=== PATIENT | female | born 1990 | race Caucasian/White ===

== ENCOUNTER 2024-01-16 11:46 | Emergency (ER) | payer MEDICAID, SELFPAY ==
[2024-01-16 11:50] VITALS: BP 137/87; PULSE 94; RESP 14; TEMP 37; O2SAT 98
--- NOTE | 2024-01-16 12:04 | ED.GENADUL_ITS ---
Discharge Plan Disposition Patient Disposition: Home Discharge Details Clinical Impression: Cellulitis of buttock, left Primary Care Provider: Unknown,Unknown ED Provider: Brian Singh Home Meds and New Rx's Prescriptions: New clindamycin HCl 300 mg capsule 300 mg PO Q6H 5 Days Qty: 20 0RF Discharge Instructions Instructions: Cellulitis (Skin Infection), Adult ED Additional Instructions: You are seen in the emergency department for your skin infection. You are receiving antibiotics that you should take as directed. The antibiotics have been called into your pharmacy. As you discussed, if you develop fevers chills or any increasing pain please return to the emergency department. Please also try to soak your skin at least once a day in the bath with warm water. Please avoid putting any creams or ointments on your skin infection but keep it clean and dry. If you develop worsening pain or increased redness please return as you may go on to develop an abscess. You do not have any signs of an abscess at the moment. For your pain please take medications as follows: 1. Take acetaminophen (Tylenol), 1,000 mg (two 500 mg tabs) every 6 hours [2. Take ibuprofen (Advil), 400 mg every 6 hours.] Discharge Data Discharge Date/Time-TO BE ENTERED AT DEPARTURE: 01/16/24 12:37 HPI General Date/Time Provider Initiated Documentation: 01/16/24 12:04 . HPI Narrative: MDM This is an overall very well-appearing normothermic and not tachycardic 33-year-old female with left buttocks cellulitis but no fluctuance nor signs of abscess to suggest benefit from incision and drainage. No pain on proportion to suggest necrotizing soft tissue infection. No vesicles to suggest zoster. No bullae to suggest Ashraf-Brody's nor TEN. Not a diabetic to suggest increased risk for opportunistic infection. No signs of erythema migrans to suggest Lyme disease. No decreased range of motion to suggest septic joint. No lacerations. Patient and I discussed return indications including any spreading erythema worsening pain fevers or inability tolerate p.o. At the lateral aspect of the patient's cellulitic area there did appear to be some pinpoint areas of erythema concerning for the possibility of dermatitis. I counseled the patient on avoiding topical antiseptic lotions and steroid creams as I did not want her to develop a secondary hypersensitivity dermatitis. Patient understood her return indications and patient was discharged with empiric trial of expectant outpatient management. 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 Patient was on antibiotics 2 weeks ago for urinary tract infection. She has no persistent symptoms of dysuria nor frequency. She reports that the area has been draining some clear and yellowish discharge. She also noticed a new spot on the left side of her nose. She says that the area is painful. She has had no fevers. She is a daily smoker and occasionally drinks ethanol. She denies illicit drug use. He has had no fevers chills nausea vomiting chest pain or shortness of breath. Exam General: Well-appearing in no acute distress speaking in complete sentences. Head: Normocephalic, atraumatic. Eye: Extraocular eye movements intact. No conjunctival injection. No scleral icterus. Ear, nose, mouth, throat: On the patient's left naris she superior to her left lip there is a small crusted erythematous macule approximately 1 x 1 cm. No fluctuance. No drainage. No bullae. No vesicles. Normal voice, handling secretions normally. Neck: Trachea midline. Cardiovascular: Well-perfused distal extremities. Respiratory: Nonlabored respiration. Gastrointestinal: Nondistended abdomen. Musculoskeletal: No edema. Moving all 4 extremities spontaneously. Skin: With patient's nurse Yasmeen Celestin as laborer tanbark I completed a skin assessment. Patient had an approximately 5 x 3 cm erythematous but not fluctuant patch on her left buttocks. There were no satellite lesions. There were on the left and superior aspect of the patient's patch some pinpoint darker areas. No bullae. No vesicles. Neurologic: Alert and appropriate, no apparent acute deficits. Psychiatric: Mood and manner are appropriate. Grooming and personal hygiene are appropriate. Related Data Home Medications ?Medication ?Instructions ?Recorded ?Confirmed clindamycin HCl 300 mg capsule 300 mg PO Q6H 5 days #20 caps 01/16/24 Previous Rx's ?Medication ?Instructions ?Recorded clindamycin HCl 300 mg capsule 300 mg PO Q6H 5 days #20 caps 01/16/24 Allergies Allergy/AdvReac Type Severity Reaction Status Date / Time tramadol Allergy Intermediate Other (See Verified 01/16/24 11:55 Comment) General Stated Complaint: RashLesion SOPHIE: 3 Course Vital Signs Vital signs: Vital Signs Temperature 37.0 C 01/16/24 11:50 Pulse 94 H 01/16/24 11:50 Respiratory Rate 14 01/16/24 11:50 Blood Pressure 137/87 01/16/24 11:50 Pulse Oximetry 98 01/16/24 11:50 Temperature 37.0 C 01/16/24 11:50 Pulse 94 H 01/16/24 11:50 Respiratory Rate 14 01/16/24 11:50 Respiratory Effort Normal 01/16/24 11:56 Blood Pressure 137/87 01/16/24 11:50 Pulse Oximetry 98 01/16/24 11:50 Oxygen Delivery Method Room Air 01/16/24 11:50 Oxygen Flow Rate 0 01/16/24 11:50 Pain Level 4 01/16/24 11:50 Medical Decision Making Quality:SDOH Health Related Social Needs: No Data to Display PFSH All Active Problems (Updated 01/16/24 @ 12:26 by Brian Singh MD) Cellulitis of buttock, left (Acute) Social History Smoking/Tobacco Use Status: Current every day Tobacco Type: cigarettes and e- cigarettes Smoking risk assessment performed?: Yes Drug use: Occasionally Substance use type: marijuana Housing: house Do you feel safe at home: Yes Do you feel safe in your relationship?: Yes POCUS Exam (ED) Limited Soft Tissue Exam DATE OF EXAM: 01/16/24 TIME OF EXAM: 12:43 PROVIDER THAT PERFORMED THE STUDY: Brian Singh IS THIS A REPEAT EXAM DURING THIS ENCOUNTER: No LOCATION OF EXAM: Buttocks/left side REASON FOR EXAM: Rash Exam Complete INCIDENTAL FINDINGS: Cobblestoning but no definitive anechoic fluid collection. Not consistent with abscess.
== END 2024-01-16 12:37 | disposition home or self-care (01) ==
LOC: ER 12:40
PROVIDERS: Emergency Provider Emergency Medicine
DX: L03.317 Cellulitis of buttock (principal)
CPT/HCPCS: 76857; 99283